=== PATIENT | female | born 1945 | race Caucasian/White ===

== ENCOUNTER 2017-04-02 07:46 | Outpatient (CLI) | payer MEDICARE, BC ==
--- NOTE | 2017-04-03 18:35 | Mammography Report ---
DIGITAL SCREENING MAMMOGRAM: 04/02/2017 CLINICAL INDICATION: A 71-year-old for screening. COMPARISON: 12/2015, 08/2014, 03/2012, 01/2011, 11/2008, 01/2007. TECHNIQUE: Routine CC and MLO projections were obtained of the breasts. The breasts demonstrate scattered fibroglandular densities bilaterally. A few punctate, typically be nign calcifications are present. No suspicious masses, clustered microcalcifications, or regions of architectural distortion are identified. IMPRESSION: BENIGN FINDINGS. RECOMMENDATION: ROUTINE ANNUAL SCREENING UNLESS OTHERWISE CLINICALLY INDICATED. BIRADS CATEGORY: 2, BENIGN FINDINGS. STANDARD QUALIFYING STATEMENTS 1. This examination was reviewed with the aid of Computed-Aided Detection (CAD). 2. A negative or benign imaging report should not delay biopsy if clinically suspicious findings are present. Consider surgical consultation if warranted. More than 5% of cancers are not identified b y imaging. 3. Dense breasts may obscure an underlying neoplasm. JOB #: [id number] EXT JOB #:[id number]
== END 2017-04-02 07:47 | disposition home or self-care (01) ==
LOC: DI 07:46
PROVIDERS: ATTEND Physician Assistant
DX: Z12.31 Encounter for screening mammogram for malignant neoplasm of breast (principal)
CPT/HCPCS: 77067

== ENCOUNTER 2017-04-02 07:48 | Outpatient (CLI) | payer MEDICARE, BC | END 2017-04-02 07:49 | disposition home or self-care (01) | LOC: DI 07:48 | PROVIDERS: ATTEND Physician Assistant | DX: R01.1 Cardiac murmur, unspecified (principal); G93.2 Benign intracranial hypertension; I10 Essential (primary) hypertension | CPT/HCPCS: 93306 ==

== ENCOUNTER 2017-08-29 12:22 | Emergency (ER) | payer MEDICARE, BC ==
[2017-08-29 13:04] LABS: BASOPHILS % (AUTO) 0.5 %; EOSINOPHILS % (AUTO) 0.4 %; HCT - HEMATOCRIT 39.5 % (37.0-47.0); HGB - HEMOGLOBIN 13.5 g/dL (12.0-16.0); LYMPHOCYTES # (AUTO) 1.4 10^3/uL (1.5-3.5); LYMPHOCYTES % (AUTO) 16.6 %; MEAN CORPUSCULAR HEMOGLOBIN 30.7 pg (27.0-31.0); MEAN CORPUSCULAR HGB CONC 34.2 g/dL (32.0-36.0); MEAN CORPUSCULAR VOLUME 89.7 fL (81.0-99.0); MEAN PLATELET VOLUME 8.6 fL (7.9-10.8); MONOCYTES # (AUTO) 0.6 10^3/uL (0.0-1.0); MONOCYTES % (AUTO) 6.9 %; NEUTROPHILS # (AUTO) 6.5 10^3/uL (1.5-6.6); NEUTROPHILS % (AUTO) 75.6 %; RED CELL DISTRIBUTION WIDTH 12.9 % (12.0-15.0); UNCORRECTED WHITE BLOOD COUNT 8.6 x10^3/uL; WHITE BLOOD COUNT 8.6 x10^3/uL (4.8-10.8)
[2017-08-29 13:12] LABS: BILIRUBIN,URINE NEGATIVE (NEGATIVE)
[2017-08-29 13:14] LABS: UA CHARGE (STRIP ONLY) YES; UR CULTURE IF IND NOT INDICATED
[2017-08-29 13:15] LABS: HCG UR QUAL NEGATIVE
[2017-08-29 13:18] LABS: ALBUMIN/GLOBULIN RATIO 1.2 (1.0-2.2); BILIRUBIN,TOTAL 0.6 mg/dL (0.2-1.0); CALCIUM 9.9 mg/dL (8.5-10.3); CREATININE 0.8 mg/dL (0.4-1.0); POTASSIUM 3.6 mmol/L (3.5-5.0); TOTAL PROTEIN 8.2 g/dL (6.7-8.2)
--- NOTE | 2017-08-29 13:59 | ED Physician Documentation ---
PD HPI SYNCOPE - Stated complaint Stated Complaint: FAINTED/HEADACHE - Chief complaint Chief Complaint: Neuro - History obtained from History obtained from: Patient - History of Present Illness Witnessed: Unwitnessed Timing - onset: Today Preceding symptoms: None Injury occurred: Fell Similar symptoms before: Has not had sx before - Additional information Additional information: The patient is a 71-year-old female who presents via private auto after having an unwitnessed syncopal episode this morning while eating breakfast. She had no preceding symptoms, but awoke on the floor. She hit her right frontal head on the floor, but denies headache currently. She denies visual disturbance. She does have slight nausea when standing, but denies vomiting. She has had no recent fever, chest pain, shortness of breath, or dysuria. She was on an airplane flight yesterday. She reports feeling "weird" yesterday prior to the airplane flight, but is not able to be more specific than feeling "weird." She has no history of similar symptoms in the past. Her past history is significant for hypertension for which she takes lisinopril. Review of her medical records reveal reveals that she was hospitalized 3 years ago with a GI bleed. Review of Systems Constitutional: denies: Fever Eyes: denies: Decreased vision Ears: denies: Tinnitus/ringing Nose: denies: Congestion Throat: denies: Sore throat Cardiac: denies: Chest pain / pressure, Palpitations Respiratory: denies: Dyspnea, Cough GI: denies: Abdominal Pain, Nausea, Vomiting : denies: Dysuria, Incontinent Skin: denies: Rash Musculoskeletal: denies: Neck pain, Back pain, Extremity swelling Neurologic: reports: Syncope. 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 - Present Medications Home Medications: Ambulatory Orders Medication Instructions Recorded Confirmed Calcium Carbonate [Calcium] 600 mg PO DAILY 02/24/14 03/09/14 Cholecalciferol (Vitamin D3) 1,000 units PO DAILY 02/24/14 03/09/14 [Vitamin D] Lisinopril [Zestril] 40 mg PO DAILY 02/24/14 03/09/14 [place]-3/Dha/Epa/Fish Oil [Fish Oil] 1,000 mg PO DAILY 02/24/14 03/09/14 - Allergies Allergies/Adverse Reactions: Allergies Allergy/AdvReac Type Severity Reaction Status Date / Time Penicillins Allergy Rash Verified 08/29/17 12:33 - Social History Does the pt smoke?: No Smoking Status: Never smoker Does the pt drink ETOH?: Yes Does the pt have substance abuse?: No PD ED PE NORMAL - Vitals Vital signs reviewed: Yes (Hypertensive) - General General: Alert and oriented X 3, Well developed/nourished - HEENT HEENT: PERRL, EOMI, Pharynx benign, Other (There is very slight swelling and associated mild tenderness to palpation in the right supraorbital region. There is no break in the integument, and no bony step-off palpated.) - Neck Neck: Supple, no meningeal sign, No bony TTP, No adenopathy, No JVD - Cardiac Cardiac: RRR, No murmur - Respiratory Respiratory: No respiratory distress, Clear bilaterally - Abdomen Abdomen: Soft, Non tender, No organomegaly - Back Back: No CVA TTP, No spinal TTP - Derm Derm: No rash - Extremities Extremities: No tenderness to palpate, No edema, No calf tenderness / cord - Neuro Neuro: Alert and oriented X 3, No motor deficit, No sensory deficit, Normal speech Eye Opening: Spontaneous Motor: Obeys Commands Verbal: Oriented GCS Score: 15 Results - Vitals Vitals: Oxygen O2 Source Room air - EKG (time done) 12:37 Rate: Rate (enter#) (63) Rhythm: NSR, LAE [place]: LAD QRS: Normal Ischemia: Q waves (in II, III, and aVF, and in V2-V4, 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.) Compare to prior EKG: Old EKG unavailable Computer interpretation: Agree with computer - Labs Labs: Laboratory Tests 08/29/17 08/29/17 08/29/17 12:40 12:45 12:45 WBC 8.6 RBC 4.40 Hgb 13.5 Hct 39.5 MCV 89.7 MCH 30.7 MCHC 34.2 RDW 12.9 Plt Count 251 MPV 8.6 Neut # 6.5 Lymph # 1.4 L Bacon # 0.6 Eos # 0.0 Baso # 0.0 Absolute Nucleated RBC 0.00 Nucleated RBC % 0.0 D-Dimer Sodium 138 Potassium 3.6 Chloride 100 L Carbon Dioxide 26 Anion Gap 12.0 BUN 21 H Creatinine 0.8 Estimated GFR (MDRD) 71 L Glucose 123 H Calcium 9.9 Total Bilirubin 0.6 AST 28 ALT 22 Alkaline Phosphatase 50 Troponin I < 0.04 Total Protein 8.2 Albumin 4.5 Globulin 3.7 Albumin/Globulin Ratio 1.2 Lipase 24 Urine Color Urine Clarity Urine pH Ur Specific [place] Urine Protein Urine Glucose (UA) Urine Ketones Urine Occult Blood Urine Nitrite Urine Bilirubin Urine Urobilinogen Ur Leukocyte Esterase Ur Microscopic Review Urine Culture Comments Urine HCG, Qual 08/29/17 08/29/17 13:00 14:11 WBC RBC Hgb Hct MCV MCH MCHC RDW Plt Count MPV Neut # Lymph # Bacon # Eos # Baso # Absolute Nucleated RBC Nucleated RBC % D-Dimer 221.7 Sodium Potassium Chloride Carbon Dioxide Anion Gap BUN Creatinine Estimated GFR (MDRD) Glucose Calcium Total Bilirubin AST ALT Alkaline Phosphatase Troponin I Total Protein Albumin Globulin Albumin/Globulin Ratio Lipase Urine Color YELLOW Urine Clarity CLEAR Urine pH 7.0 Ur Specific [place] 1.025 Urine Protein TRACE Urine Glucose (UA) NEGATIVE Urine Ketones NEGATIVE Urine Occult Blood NEGATIVE Urine Nitrite NEGATIVE Urine Bilirubin NEGATIVE Urine Urobilinogen 0.2 (NORMAL) Ur Leukocyte Esterase NEGATIVE Ur Microscopic Review NOT INDICATED Urine Culture Comments NOT INDICATED Urine HCG, Qual NEGATIVE - Rads (name of study) cxr Radiology: Prelim report reviewed, EMP read contemporaneously, See rad report ( Clear lungs. Tortuous aorta.) Head CT Radiology: Prelim report reviewed, EMP read contemporaneously, See rad report ( Negative for acute or focal intracranial abnormality.) PD MEDICAL DECISION MAKING - ED course Complexity details: reviewed old records, reviewed results, re-evaluated patient , considered differential, d/w patient ED course: The patient's presentation is significant for dehydration with syncopal episode. The underlying cause of her dehydration is most likely poor oral intake over a prolonged period of time. The possibility of cardiac rhythm disturbance is considered, but no specific rhythm disturbance was noted on cardiac monitoring while in the emergency department. Her urinalysis and chest x-ray reveals no evidence of urinary tract infection or pneumonia, and her presentation does not suggest sepsis. She has no history of seizure, and I doubt seizure was the cause of her syncopal episode today. Pulmonary embolus was considered, given her recent airplane flight. However there is no calf tenderness, no tachycardia, normal pulse oximetry, and d-dimer is normal, making pulmonary embolus unlikely. Treatment in the emergency department included administration of normal saline 2 L IV. Her symptoms completely resolved with the above treatment, and she demonstrated ability to ambulate without nausea or lightheadedness. I discussed with her and her female vice president education's the likely diagnosis, outpatient follow-up, as well as potentially worrisome signs or symptoms that should prompt reevaluation in the emergency department. Departure - Departure Disposition: 01 Home, Self Care Clinical Impression: Dehydration Syncope Qualifiers: Syncope type: unspecified Qualified Code(s): R55 - Syncope and collapse Condition: Stable Instructions: ED Dehydration, ED Fainting Unkn Cause Follow-Up: Denisse Bella PA [Primary Care Provider] - Comments: Drink plenty of fluids. Follow up with your primary physician within 1 week. Call to schedule an appointment. Return to the emergency department if you develop increasing dizziness, recurrent episode of fainting, chest pain, shortness of breath, or otherwise worsening symptoms. Discharge Date/Time: 08/29/17 18:30
--- NOTE | 2017-08-29 14:43 | XRAY Preliminary Report ---
Exam: XR CHEST 1 VIEW IMPRESSION: Clear lungs. Tortuous aorta. [facility] SITE ID: [id number]
--- NOTE | 2017-08-29 14:45 | XRAY Report ---
EXAM: CHEST RADIOGRAPHY EXAM DATE: 08/29/2017 02:19 PM. CLINICAL HISTORY: Syncope. COMPARISON: 12/30/2012. TECHNIQUE: 1 view. FINDINGS: Lungs/Pleura: No focal opacities evident. No pleural effusion. No pneumothorax. Mediastinum: The aorta is moderately tortuous. The heart size is normal. Trachea is midline. Other: None. IMPRESSION: Clear lungs. Tortuous aorta. [facility] Referring Provider Line: [phone] SITE ID: [id number]
[2017-08-29] MEDS ORDERED: SODIUM CHLORIDE 0.9% 1,000 ML IV ONE ×2 (14:58→16:12)
--- NOTE | 2017-08-29 17:18 | CT Preliminary Report ---
Exam: CT HEAD W/O IMPRESSION: Negative for a focal or acute intracranial abnormality. [facility] SITE ID: [id number]
--- NOTE | 2017-08-29 17:21 | CT Report ---
EXAM: CT HEAD EXAM DATE: 08/29/2017 05:06 PM. CLINICAL HISTORY: Syncopal episode with head injury. COMPARISON: None. TECHNIQUE: Multiaxial CT images were obtained from the foramen magnum to the vertex. Reformats: Coron al. IV contrast: None. In accordance with CT protocol optimization, one or more of the following dose reduction techniques w ere utilized for this exam: automated exposure control, adjustment of mA and/or KV based on patient s ize, or use of iterative reconstructive technique. FINDINGS: Parenchyma: No intraparenchymal hemorrhage. No evidence of mass, midline shift, or CT findings of inf arction. Aguilar-white differentiation is distinct. Extraaxial Spaces: Normal for age. No subdural or epidural collections identified. Ventricles: Normal in size and position. Sinuses and Orbits: Imaged paranasal sinuses, orbits, and mastoids show no significant abnormality. Bones: There is a right periorbital scalp hematoma. There is no fracture. Other: None. IMPRESSION: Negative for a focal or acute intracranial abnormality. [facility] Referring Provider Line: [phone] SITE ID: [id number]
[2017-08-29 18:13] VITALS: BP 125/78
== END 2017-08-29 18:30 | disposition home or self-care (01) ==
LOC: ED 12:22
DX: E86.0 Dehydration (principal); R55 Syncope and collapse; I10 Essential (primary) hypertension
CPT/HCPCS: 36415; 70450; 71010; 80053; 81001; 81003; 81025; 83690; 84484; 85025; 85379; 87086; 93005; 96360; 96361; 99284

== ENCOUNTER 2017-10-07 15:59 | Outpatient (CLI) | payer MEDICARE, BC ==
--- NOTE | 2017-10-08 10:25 | XRAY Report ---
DATE OF SERVICE: 10/07/2017 THREE-VIEW CERVICAL SPINE: 10/07/2017 CLINICAL INDICATION: Pain. FINDINGS: AP, lateral, odontoid views of the cervical spine demonstrate moderate degenerative disk and facet disease. There is no evidence of fracture or subluxation. The prevertebral soft tissues are unremarkable. IMPRESSION: Moderate degenerative changes. TD: 10/08/2017 11:24
--- NOTE | 2017-10-08 10:26 | XRAY Report ---
DATE OF SERVICE: 10/07/2017 TWO-VIEW THORACIC SPINE: 10/07/2017 CLINICAL INDICATION: Pain. FINDINGS: Frontal and lateral views of the thoracic spine demonstrate mild degenerative disk disease. The vertebral bodies demonstrate normal height. No paraspinal hematoma is present. IMPRESSION: Mild degenerative changes. TD: 10/08/2017 11:25
--- NOTE | 2017-10-08 10:28 | XRAY Report ---
DATE OF SERVICE: 10/07/2017 TWO-VIEW LUMBAR SPINE: 10/07/2017 CLINICAL INDICATION: Pain. FINDINGS: AP, lateral views of the lumbar spine demonstrate degenerative disk and facet disease, worst at L4-L5, where there is 7 mm anterolisthesis of L4 on L5 due to facet arthropathy. There is no evidence of compression fracture. The bowel gas pattern is normal. IMPRESSION: Moderate degenerative changes, worst at L4-L5, with degenerative anterolisthesis of L4 on L5. TD: 10/08/2017 11:27
--- NOTE | 2017-10-08 10:29 | XRAY Report ---
DATE OF SERVICE: 10/07/2017 THREE-VIEW SACRUM AND COCCYX: 10/07/2017 CLINICAL INDICATION: Pain. FINDINGS: AP, oblique, lateral views of the sacrum and coccyx demonstrate no evidence of fracture. Mild degenerative changes are noted in the sacroiliac joints. The sacral ala are preserved. IMPRESSION: Mild degenerative changes of the sacroiliac joints. No evidence of fracture. TD: 10/08/2017 11:28 [facility]
--- NOTE | 2017-10-08 10:30 | XRAY Report ---
DATE OF SERVICE: 10/07/2017 RIGHT HIP AND PELVIS: 10/07/2017 CLINICAL INDICATION: Pain. FINDINGS: Frontal view of the hips and pelvis and frogleg lateral view of the right hip demonstrate no evidence of fracture or dislocation. The joint spaces are preserved. No radiopaque foreign body is seen in the soft tissues. IMPRESSION: Normal right hip. TD: 10/08/2017 11:29
== END 2017-10-07 16:00 | disposition home or self-care (01) ==
LOC: DI 15:59
PROVIDERS: ATTEND Physician Assistant
DX: M54.2 Cervicalgia (principal); M25.551 Pain in right hip; M54.5 Low back pain; M54.6 Pain in thoracic spine; M43.17 Spondylolisthesis, lumbosacral region
CPT/HCPCS: 72040; 72070; 72100; 72220

== ENCOUNTER 2018-01-15 08:28 | Outpatient (CLI) | payer MEDICARE, BC | END 2018-01-15 08:29 | disposition home or self-care (01) | LOC: DI 08:28 | PROVIDERS: ATTEND Internal Medicine Cardiovascular Disease | DX: R94.31 Abnormal electrocardiogram [ECG] [EKG] (principal); I10 Essential (primary) hypertension | CPT/HCPCS: 93308 ==

== ENCOUNTER 2018-04-10 11:03 | Outpatient (CLI) | payer MEDICARE, BC ==
[2018-04-10 18:10] LABS: BASOPHILS % (AUTO) 0.5 %; EOSINOPHILS # (AUTO) 0.1 10^3/uL (0.0-0.7); HGB - HEMOGLOBIN 13.1 g/dL (12.0-16.0); LYMPHOCYTES # (AUTO) 1.7 10^3/uL (1.5-3.5); LYMPHOCYTES % (AUTO) 24.5 %; MEAN CORPUSCULAR HEMOGLOBIN 30.3 pg (27.0-31.0); MEAN CORPUSCULAR HGB CONC 32.9 g/dL (32.0-36.0); MEAN CORPUSCULAR VOLUME 91.9 fL (81.0-99.0); MEAN PLATELET VOLUME 8.9 fL (7.9-10.8); MONOCYTES # (AUTO) 0.6 10^3/uL (0.0-1.0); MONOCYTES % (AUTO) 9.1 %; NEUTROPHILS # (AUTO) 4.4 10^3/uL (1.5-6.6); NEUTROPHILS % (AUTO) 63.9 %; PLT - PLATELET COUNT 279 10^3/uL (130-450); RED BLOOD COUNT 4.33 10^6/uL (4.20-5.40); RED CELL DISTRIBUTION WIDTH 13.2 % (12.0-15.0); WHITE BLOOD COUNT 6.8 x10^3/uL (4.8-10.8)
[2018-04-10 18:18] LABS: URIC ACID 6.2 mg/dL (2.6-7.2)
[2018-04-10 18:25] LABS: CREATININE 0.8 mg/dL (0.4-1.0)
== END 2018-04-10 11:04 | disposition home or self-care (01) ==
LOC: LAB.F 11:03
PROVIDERS: ATTEND Physician Assistant
DX: I10 Essential (primary) hypertension (principal); E83.52 Hypercalcemia
CPT/HCPCS: 36415; 80048; 83615; 84450; 84550; 85025

== ENCOUNTER 2018-07-03 10:00 | Outpatient (CLI) | payer MEDICARE, BC ==
--- NOTE | 2018-07-03 11:33 | DEXA Report ---
Reason: POST MENOPAUSAL, OSTEOPENIA Procedure Date: 07/03/2018 Accession Number: [id number] / [id number] Procedure: DEX - Dexa Spine and/or Hip CPT Code: FULL RESULT: EXAM: Dexa Spine and/or Hip DATE: 07/03/2018 10:31 AM CLINICAL HISTORY: POST MENOPAUSAL, OSTEOPENIA TECHNIQUE: Dual energy x-ray absorptiometry (DXA) was performed on a [employer] System. Regions measured are the AP Spine, femoral neck, and if needed forearm. COMPARISON: None. In accordance with the International Society for Clinical Densitometry (ISCD) guidelines, data from previous exams may be reanalyzed using current recommendations and techniques. This is done to allow a more accurate basis for comparison with the current study. FINDINGS: The data for the lumbar spine is as follows: BMD (g/cm/cm) T-SCORE Z-SCORE REGION L1 0.851 -2.3 -0.8 L2 1.034 -1.4 0.1 L3 1.008 -1.6 -0.1 L4 1.213 0.1 1.6 TOTAL 1.035 -1.2 0.3 NOTE: All evaluable vertebrae are used for classification The data for the hip is as follows: BMD (g/cm/cm) T-SCORE Z-SCORE REGION Neck 0.759 -2.0 -0.3 TOTAL 0.852 -1.2 0.2 NOTE: The femoral neck or total proximal femur, whichever is lowest, is used for classification. IMPRESSION: THE WHO CLASSIFICATION BASED ON THE INTERNATIONAL REFERENCE STANDARD IS OSTEOPENIA. THE FRACTURE RISK IS INCREASED. RECOMMENDATION: Patients with diagnosis of osteoporosis or osteopenia should have regular bone mineral density assessment. For those eligible for Medicare, routine testing is allowed once every 2 years. Testing frequency can be increased for patients who have rapidly progressing disease or for those who are receiving medical therapy to restore bone mass. COMMENT: World Health Organization (WHO) definitions for osteoporosis and osteopenia: NORMAL BMD: T-score at -1.0 or higher, fracture risk is low OSTEOPENIA BMD: T-score between -1.0 and -2.5, fracture risk is increased. OSTEOPOROSIS BMD: T-score at -2.5 or lower, fracture risk is high. National Osteoporosis Foundation recommends: 1. Obtain adequate dietary calcium (at least 1200 mg per day) and vitamin D (400-800 international units per day). 2. Participate, as appropriate, in regular weightbearing and muscle-strengthening exercise. 3. Avoid tobacco use and reduce alcohol and caffeine intake. 4. For more detailed information see the website at www.NOF.org.
== END 2018-07-03 10:01 | disposition home or self-care (01) ==
LOC: DI 10:00
PROVIDERS: ATTEND Physician Assistant
DX: M85.89 Other specified disorders of bone density and structure, multiple sites (principal); N95.8 Other specified menopausal and perimenopausal disorders
CPT/HCPCS: 77080

== ENCOUNTER 2018-08-13 07:54 | Outpatient (CLI) | payer MEDICARE, BC ==
[2018-08-13 10:24] LABS: CALCIUM 9.6 mg/dL (8.5-10.3)
== END 2018-08-13 07:55 | disposition home or self-care (01) ==
LOC: LAB.F 07:54
PROVIDERS: ATTEND Internal Medicine Cardiovascular Disease
DX: I10 Essential (primary) hypertension (principal)
CPT/HCPCS: 36415; 80048

== ENCOUNTER 2019-08-11 12:00 | Outpatient (CLI) | payer MEDICARE, BC | END 2019-08-11 12:01 | disposition critical access hospital (66) | LOC: EMS 12:00 | PROVIDERS: ATTEND Surgery | DX: M25.562 Pain in left knee (principal); X50.9XXA Other and unspecified overexertion or strenuous movements or postures, initial encounter; Y93.69 Activity, other involving other sports and athletics played as a team or group | CPT/HCPCS: A0425; A0429 ==

== ENCOUNTER 2019-08-11 12:35 | Emergency (ER) | payer MEDICARE, BC ==
--- NOTE | 2019-08-11 13:36 | XRAY Report ---
Reason: L knee pain, twisted knee playing pickleball Procedure Date: 08/11/2019 Accession Number: [id number] / [id number] Procedure: XR - Knee 2 View LT CPT Code: Final Report FULL RESULT: EXAM: LEFT KNEE RADIOGRAPHY EXAM DATE: 08/11/2019 01:12 PM. CLINICAL HISTORY: Left knee pain, twisted knee playing pickleball. COMPARISON: None. TECHNIQUE: 2 views. FINDINGS: Bones: Normal. No fractures or bone lesions. Joints: No dislocation. Questionably trace joint effusion, no significant effusion. Mild degenerative changes including marginal osteophytosis and minimal loss of joint space height of the weightbearing compartments. Soft Tissues: Normal. No soft tissue swelling. IMPRESSION: Degenerative changes without fracture or dislocation. Potentially trace joint effusion. [facility]
--- NOTE | 2019-08-11 13:39 | XRAY Report ---
Reason: L ankle pain, twisted ankle Procedure Date: 08/11/2019 Accession Number: [id number] / [id number] Procedure: XR - Ankle 3 View LT CPT Code: Final Report FULL RESULT: EXAM: LEFT ANKLE RADIOGRAPHY EXAM DATE: 08/11/2019 01:12 PM. CLINICAL HISTORY: Left ankle pain, twisted ankle. COMPARISON: KNEE 2 VIEW LT 08/11/2019 12:57 PM. TECHNIQUE: 3 views. FINDINGS: Bones: No acute fracture. Prominent plantar calcaneal spur. Well-corticated ossific density adjacent to the medial malleolar tip. Joints: Normal. No effusion. No subluxations. The ankle mortise is normally aligned. Soft Tissues: Mild anterior and medial left ankle soft tissue swelling noted. No radiopaque foreign bodies are noted. IMPRESSION: 1. No acute fracture. 2. Normal alignment. 3. Mild medial left ankle swelling. [facility]
--- NOTE | 2019-08-11 15:01 | ED Physician Documentation ---
PD HPI LOWER EXT INJURY - Stated complaint Stated Complaint: FALL - Chief complaint Chief Complaint: Ext Problem - History obtained from History obtained from: Patient - History of Present Illness PD HPI LOW EXT INJURY LOCATION: Left, Knee, Ankle Type of injury: Fall, Twist Timing - onset: How many hours ago (1) Timing - duration: Hours (1) Timing - details: Abrupt onset, Still present (She was playing pickle ball and twisted on a planted foot with pain at the inside of the knee and she did fall with a valgus stress. She had pain in the knee and was unable to get up. EMS was called and brought her here. She has not really stood on her knee as yet. Therefore cannot assess for any feeling of unreliability or popping or clicking.) Associated symptoms: Swelling (medial). No: Weakness, Numbness Similar symptoms before: Has not had sx before Recently seen: Not recently seen Review of Systems Skin: denies: Abrasion (s), Laceration (s) Neurologic: denies: Focal weakness, Numbness, Altered mental status, Head injury, LOC PD PAST MEDICAL HISTORY - Past Medical History Past Medical History: Yes Cardiovascular: Hypertension Respiratory: None Endocrine/Autoimmune: None GI: GI bleed, Other : None HEENT: Chronic hearing loss Psych: None Musculoskeletal: Chronic back pain Derm: None - Past Surgical History Past Surgical History: Yes General: Cholecystectomy, Appendectomy, Colonoscopy /DRIVER'S EDUCATION INSTRUCTOR: Tubal ligation - Present Medications Home Medications: Ambulatory Orders Medication Instructions Recorded Confirmed Calcium Carbonate [Calcium] 600 mg PO DAILY 02/24/14 03/09/14 Cholecalciferol (Vitamin D3) 1,000 units PO DAILY 02/24/14 03/09/14 [Vitamin D] Lisinopril [Zestril] 40 mg PO DAILY 02/24/14 03/09/14 [place]-3/Dha/Epa/Fish Oil [Fish Oil] 1,000 mg PO DAILY 02/24/14 03/09/14 - Allergies Allergies/Adverse Reactions: Allergies Allergy/AdvReac Type Severity Reaction Status Date / Time Penicillins Allergy Rash Verified 08/29/17 12:33 - Social History Does the pt smoke?: No Smoking Status: Never smoker Does the pt drink ETOH?: Yes Does the pt have substance abuse?: No PD ED PE NORMAL - Vitals Vital signs reviewed: Yes - General General: Alert and oriented X 3, No acute distress, Well developed/nourished - Derm Derm: Normal color, Warm and dry - Extremities Extremities: Other (left knee with tenderness medial joint line. No laxity but has pain with valgus stress. Cruciate testing without pain nor laxity. No effusion of the knee. No pain with impaction/rotation of the knee. Ankle not tender with good ROM. ) Results - Vitals Vitals: Vital Signs - 24 hr 08/11/19 08/11/19 08/11/19 12:39 15:42 16:21 Temperature 36.9 C Heart Rate 65 66 64 Respiratory 18 16 16 Rate Blood Pressure 167/86 H 150/88 H 146/86 H O2 Saturation 98 98 98 Oxygen O2 Source Nasal cannula - Rads (name of study) knee xray Radiology: Prelim report reviewed (no fractures), See rad report ankle xray Radiology: Prelim report reviewed (no fractures), See rad report PD MEDICAL DECISION MAKING - ED course Complexity details: reviewed results, considered differential (seems like MCL strain.), d/w patient Departure - Departure Disposition: 01 Home, Self Care Clinical Impression: MCL sprain of left knee Qualifiers: Encounter type: initial encounter Qualified Code(s): S83.412A - Sprain of medial collateral ligament of left knee, initial encounter Condition: Stable Record reviewed to determine appropriate education?: Yes Instructions: ED Sprain Knee Collateral Ligaments Follow-Up: Denisse Bella PA [Primary Care Provider] - [facility] [Provider Group] Comments: I think this feels like a strain of the MCL ligament. It does not seem torn. I think he can be treated with the knee splint and adding crutches if needed for comfort. He can use some Tylenol ibuprofen or Aleve as needed for pains. You do not have to have the knee brace on when you are sleeping or resting but he came have it on if it feels better. You want to wear the knee brace when up and around for the next week or 2 at least. Follow-up with your primary care or orthopedics in about a week. At that point if it is doing well then we can change from limited range of motion to more full range of motion. Discharge Date/Time: 08/11/19 16:21
[2019-08-11] MEDS ORDERED: IBUPROFEN 600 MG TABLET PO STA (15:31)
[2019-08-11 16:23] VITALS: BP 146/86
== END 2019-08-11 16:21 | disposition home or self-care (01) ==
LOC: EDUNIT# → ED 12:35
DX: S83.412A Sprain of medial collateral ligament of left knee, initial encounter (principal); M25.572 Pain in left ankle and joints of left foot; X50.1XXA Overexertion from prolonged static or awkward postures, initial encounter; Y93.73 Activity, racquet and hand sports; I10 Essential (primary) hypertension
CPT/HCPCS: 99282; 99283

== ENCOUNTER 2019-10-01 10:12 | Outpatient (CLI) | payer MEDICARE, BC ==
--- NOTE | 2019-10-01 16:06 | Mammography Report ---
Reason: ROUTINE MAMMO Procedure Date: 10/01/2019 Accession Number: [id number] / [id number] Procedure: RUBIN - Screening Mammo w/[facility] CPT Code: Final Report FULL RESULT: EXAM: Screening Mammo w/[facility] DATE: 10/01/2019 10:54 AM CLINICAL HISTORY: The patient is an asymptomatic 74-year-old female. No reported personal nor family history breast cancer. TECHNIQUE: (B) - Bilateral CC and MLO views were obtained. COMPARISON: 04/02/2017, 01/02/2016, 08/25/2014, 04/10/2012 and 01/25/2011 PARENCHYMAL PATTERN: (A) - The breasts demonstrate scattered fibroglandular densities bilaterally. FINDINGS: There are no suspicious masses, calcifications, or areas of distortion. IMPRESSION: Negative examination. BI-RADS category 1. RECOMMENDATION: (ANNUAL) - Recommend routine annual screening mammography. BI-RADS CATEGORY: (1) - Negative. STANDARD QUALIFYING STATEMENTS: A negative or benign imaging report should not preclude biopsy if clinically suspicious findings are present. Dense breasts may obscure an underlying neoplasm. This examination was reviewed with the aid of 3D breast imaging (tomosynthesis).
== END 2019-10-01 10:13 | disposition home or self-care (01) ==
LOC: DI 10:12
PROVIDERS: ATTEND Physician Assistant
DX: Z12.31 Encounter for screening mammogram for malignant neoplasm of breast (principal)
CPT/HCPCS: 77063; 77067

== ENCOUNTER 2020-07-05 08:00 | Outpatient (CLI) | payer MEDICARE, BC ==
--- NOTE | 2020-07-05 11:55 | XRAY Report ---
PROCEDURE: Finger(s) RT INDICATIONS: DISLOCATION OF MCP JOINT OF RIGHT HAND TECHNIQUE: AP hand, 3 views of the right third finger(s) acquired. COMPARISON: None FINDINGS: Bones: No fractures. The third proximal phalange is dislocated anteriorly. No suspicious bony lesion s. Soft tissues: No suspicious soft tissue calcifications. IMPRESSION: Right third MCP joint dislocation. Reviewed by: Jennifer Desouza MD, PhD on 07/05/2020 10:54 AM MEET Approved by: Jennifer Desouza MD, PhD on 07/05/2020 10:54 AM [facility] Station ID: [id number]
== END 2020-07-05 23:59 | disposition home or self-care (01) ==
LOC: DI.S 08:00
PROVIDERS: ATTEND Physician Assistant Medical
DX: S63.262A Dislocation of metacarpophalangeal joint of right middle finger, initial encounter (principal)
CPT/HCPCS: 73140

== ENCOUNTER 2020-07-06 08:00 | Outpatient (CLI) | payer MEDICARE, BC ==
--- NOTE | 2020-07-06 18:40 | XRAY Report ---
PROCEDURE: Finger(s) RT INDICATIONS: DISLOCATION OF MCP JOINT OF MIDDLE FINGER OF RIGHT HAND TECHNIQUE: AP hand, 3 views of the right third finger(s) acquired. COMPARISON: None FINDINGS: Bones: No fracture. There is normal association of the third metacarpal and proximal phalange compati ble with reduction of third MTP joint dislocation. No suspicious bony lesions. Soft tissues: No suspicious soft tissue calcifications. IMPRESSION: 1. Status post reduction of third MTP joint dislocation. 2. No fracture. Reviewed by: Jennifer Desouza MD, PhD on 07/06/2020 5:39 PM MEET Approved by: Jennifer Desouza MD, PhD on 07/06/2020 5:39 PM MEET Station ID: [id number]
== END 2020-07-06 23:59 | disposition home or self-care (01) ==
LOC: DI.S 08:00
PROVIDERS: ATTEND Emergency Medicine
DX: S63.262A Dislocation of metacarpophalangeal joint of right middle finger, initial encounter (principal)
CPT/HCPCS: 73140

== ENCOUNTER 2020-11-03 12:22 | Outpatient (CLI) | payer MEDICARE, BC ==
--- NOTE | 2020-11-04 10:45 | Mammography Report ---
BILATERAL DIGITAL SCREENING MAMMOGRAM 3D/2D: 11/03/2020 CLINICAL: Routine screening. Comparison is made to exams dated: 10/01/2019 mammogram, 04/02/2017 mammogram, 01/02/2016 mammogram, mammogram, 09/20/2014 ultrasound, and 08/25/2014 mammogram - [facility]. Th e tissue of both breasts is predominantly fatty. No significant masses, calcifications, or other findings are seen in either breast. There has been no significant interval change. IMPRESSION: NEGATIVE There is no mammographic evidence of malignancy. A 1 year screening mammogram is recommended. This exam was interpreted at Station ID: [id number]. NOTE: For mammograms, a report in lay terms will be sent to the patient. Approximately 15% of breast malignancies will not be visualized mammographically. In the management of a palpable breast mass, a negative mammogram must not discourage biopsy of a clinically suspicious lesion. Electronically Signed By: Porfirio castaneda/penrad:11/03/2020 14:34:22 ACR BI-RADS Category 1: Negative 3341F PARENCHYMAL PATTERN: (F) - The breast(s) demonstrate(s) diffuse fatty replacement. BI-RADS CATEGORY: (1) - 1 RECOMMENDATION: (ANNUAL) - Recommend routine annual screening mammography. [id number] 1 year screening LATERALITY: (B)
== END 2020-11-03 12:23 | disposition home or self-care (01) ==
LOC: DI.N 12:22
PROVIDERS: ATTEND Nurse Practitioner Family
DX: Z12.31 Encounter for screening mammogram for malignant neoplasm of breast (principal)

== ENCOUNTER 2022-06-06 08:57 | Outpatient (CLI) | payer MEDICARE, BC ==
--- NOTE | 2022-06-07 12:52 | Mammography Report ---
BILATERAL DIGITAL SCREENING MAMMOGRAM 3D/2D: 06/06/2022 CLINICAL: Routine screening. Comparison is made to exams dated: 11/03/2020 mammogram, 10/01/2019 mammogram, and 04/02/2017 mammogram - [facility]. Both breasts are almost entirely fatty (category a/<25% glandular tissue). No significant masses, calcifications, or other findings are seen in either breast. There has been no significant interval change. IMPRESSION: NEGATIVE There is no mammographic evidence of malignancy. A 1 year screening mammogram is recommended. Based on the Tyrer Cuzick model (a risk assessment model) the patients lifetime risk is 1.6% and her 10 year risk is 0.0%. According to the ACR, ACS, and NCCN guidelines, an annual breast MRI exam derrick g with mammogram is recommended if the patients lifetime risk is 20% or greater. This exam was interpreted at Station ID: [id number]. NOTE: For mammograms, a report in lay terms will be sent to the patient. Approximately 15% of breast malignancies will not be visualized mammographically. In the management of a palpable breast mass, a negative mammogram must not discourage biopsy of a clinically suspicious lesion. Electronically Signed By: Enrique Varghese M.D. aty/sprad:06/07/2022 07:42:21 ACR BI-RADS Category 1: Negative 3341F PARENCHYMAL PATTERN: (F) - The breast(s) demonstrate(s) diffuse fatty replacement. BI-RADS CATEGORY: (1) - 1 RECOMMENDATION: (ANNUAL) - Recommend routine annual screening mammography. [id number] 1 year screening LATERALITY: (B)
== END 2022-06-06 08:58 | disposition home or self-care (01) ==
LOC: DI.S 08:57
DX: Z12.31 Encounter for screening mammogram for malignant neoplasm of breast (principal)

== ENCOUNTER 2023-07-10 10:11 | Outpatient (CLI) | payer MEDICARE, BC ==
--- NOTE | 2023-07-10 14:31 | DEXA Report ---
PROCEDURE: Dexa Spine and/or Hip INDICATIONS: OSTEOPENIA TECHNIQUE: Dual energy x-ray absorptiometry (DXA) was performed on a [employer] System. Regions measur ed are the AP Spine, femoral neck, and if needed forearm. COMPARISON: DEXA 07/03/2018 FINDINGS: Lumbar Spine: Bone Mineral Density 1.003 g/cm/cm,T score -1.5, compared to -1.2. It is noted current exam was alanna ured through the levels L1-L3 while prior exam measured L1-L2. Left Femoral Neck: Bone Mineral Density 0.742 g/cm/cm, T score -2.1, compared to -2.0. Left Hip: Bone Mineral Density 0.869 g/cm/cm,T score -1.1, compared to -1.2. (T score greater or equal to -1.0: NORMAL) (T score from -1.1 to -2.4: OSTEOPENIA) (T score less than or equal to -2.5 to: OSTEOPOROSIS) Impression: By WHO criteria, this patient has low bone density (osteopenia). Most severe in the left femoral neck . Greatest progression is noted in the lumbar spine. Patients with diagnosis of osteoporosis or osteopenia should have regular bone mineral density assess ment. For those eligible for Medicare, routine testing is allowed once every 2 years. Testing frequ ency can be increased for patients who have rapidly progressing disease or for those who are receivin g medical therapy to restore bone mass. Reviewed by: Sarah Hall MD on 07/10/2023 2:30 PM PDT Approved by: Sarah Hall MD on 07/10/2023 2:30 PM PDT Station ID: [id number]
== END 2023-07-10 10:12 | disposition home or self-care (01) ==
LOC: DI 10:11
PROVIDERS: ATTEND Nurse Practitioner Family
DX: M85.80 Other specified disorders of bone density and structure, unspecified site (principal)

== ENCOUNTER 2023-07-10 10:11 | Outpatient (CLI) | payer MEDICARE, BC ==
--- NOTE | 2023-07-11 13:40 | Mammography Report ---
BILATERAL DIGITAL SCREENING MAMMOGRAM 3D/2D: 07/10/2023 CLINICAL: Routine screening. Comparison is made to exams dated: 06/06/2022 mammogram, 11/03/2020 mammogram, 10/01/2019 mammogram, 03/23 mammogram, 01/02/2016 mammogram, and 09/20/2014 mammogram - . Both breasts are almost entirely fatty (category a/<25% glandular tissue). No significant masses, calcifications, or other findings are seen in either breast. There has been no significant interval change. IMPRESSION: NEGATIVE There is no mammographic evidence of malignancy. A 1 year screening mammogram is recommended. Based on the Tyrer Cuzick model (a risk assessment model) the patients lifetime risk is 1.4% and her 10 year risk is 0.0%. According to the ACR, ACS, and NCCN guidelines, an annual breast MRI exam derrick g with mammogram is recommended if the patients lifetime risk is 20% or greater. This exam was interpreted at Station ID: [id number]. NOTE: For mammograms, a report in lay terms will be sent to the patient. Approximately 15% of breast malignancies will not be visualized mammographically. In the management of a palpable breast mass, a negative mammogram must not discourage biopsy of a clinically suspicious lesion. Electronically Signed By: Enrique [email or web address]/garry:07/10/2023 12:09:05 letter sent: No_Letter ACR BI-RADS Category 1: Negative 3341F PARENCHYMAL PATTERN: (F) - The breast(s) demonstrate(s) diffuse fatty replacement. BI-RADS CATEGORY: (1) - 1 Mammogram [id number] 1 year screening LATERALITY: (B)
== END 2023-07-10 10:12 | disposition home or self-care (01) ==
LOC: DI 10:11
PROVIDERS: ATTEND Nurse Practitioner Family
DX: Z12.31 Encounter for screening mammogram for malignant neoplasm of breast (principal)